=== PATIENT | female | born 1990 | race Caucasian/White ===

== ENCOUNTER → 2020-02-04 14:14 | Outpatient (BNVA) | payer MEDICAID, SELFPAY | PROVIDERS: Family Provider Nurse Practitioner Family; PCP Nurse Practitioner; Visit Provider Nurse Practitioner | DX: F50.00 Anorexia nervosa, unspecified (principal); F41.9 Anxiety disorder, unspecified; F32.9 Major depressive disorder, single episode, unspecified; E55.9 Vitamin D deficiency, unspecified | CPT/HCPCS: 80053; 81000; 82306; 82607; 84443; 85025 ==

== ENCOUNTER → 2020-02-25 15:39 | Outpatient (BNVA) | payer MEDICAID, SELFPAY | PROVIDERS: Family Provider Nurse Practitioner Family; PCP Nurse Practitioner; Visit Provider Nurse Practitioner | DX: Z12.4 Encounter for screening for malignant neoplasm of cervix (principal) | CPT/HCPCS: 88175 ==

== ENCOUNTER → 2020-05-06 09:33 | Outpatient (BNVA) | payer BC, MEDICAID, SELFPAY | PROVIDERS: Family Provider Nurse Practitioner Family; PCP Nurse Practitioner; Visit Provider Nurse Practitioner Family | DX: N91.2 Amenorrhea, unspecified (principal) | CPT/HCPCS: 81025 ==

== ENCOUNTER → 2020-05-15 13:11 | Outpatient (BNVA) | payer BC, MEDICAID, SELFPAY | PROVIDERS: Family Provider Nurse Practitioner Family; PCP Nurse Practitioner; Visit Provider Nurse Practitioner Women's Health | DX: O99.340 Other mental disorders complicating pregnancy, unspecified trimester (principal); F41.9 Anxiety disorder, unspecified; O09.899 Supervision of other high risk pregnancies, unspecified trimester; F50.00 Anorexia nervosa, unspecified; O34.219 Maternal care for unspecified type scar from previous cesarean delivery; O09.299 Supervision of pregnancy with other poor reproductive or obstetric history, unspecified trimester; O99.330 Smoking (tobacco) complicating pregnancy, unspecified trimester; O99.320 Drug use complicating pregnancy, unspecified trimester; O36.80X0 Pregnancy with inconclusive fetal viability, not applicable or unspecified | CPT/HCPCS: 80307; 81000 ==

== ENCOUNTER → 2020-06-02 15:24 | Outpatient (BNVA) | payer BC, MEDICAID, SELFPAY | PROVIDERS: Family Provider Nurse Practitioner Family; PCP Nurse Practitioner; Visit Provider Obstetrics & Gynecology | DX: O09.899 Supervision of other high risk pregnancies, unspecified trimester (principal) | CPT/HCPCS: 80307; 81000; 85027; 86592; 86762; 86803; 86850; 86900; 87086; 87340; 87806 ==

== ENCOUNTER → 2020-06-25 13:37 | Outpatient (BNVA) | payer BC, MEDICAID, SELFPAY | PROVIDERS: Family Provider Nurse Practitioner Family; PCP Nurse Practitioner; Visit Provider Obstetrics & Gynecology | DX: O99.330 Smoking (tobacco) complicating pregnancy, unspecified trimester (principal); O09.899 Supervision of other high risk pregnancies, unspecified trimester; O09.299 Supervision of pregnancy with other poor reproductive or obstetric history, unspecified trimester; O34.219 Maternal care for unspecified type scar from previous cesarean delivery; Z72.89 Other problems related to lifestyle; F41.9 Anxiety disorder, unspecified; F32.9 Major depressive disorder, single episode, unspecified; O99.320 Drug use complicating pregnancy, unspecified trimester; F50.00 Anorexia nervosa, unspecified | CPT/HCPCS: 81000; 87491; 87591; 88175 ==

== ENCOUNTER → 2020-07-23 13:49 | Outpatient (BNVA) | payer BC, MEDICAID, SELFPAY | PROVIDERS: Family Provider Nurse Practitioner Family; PCP Nurse Practitioner; Visit Provider Nurse Practitioner Women's Health | DX: O99.322 Drug use complicating pregnancy, second trimester (principal); O99.332 Smoking (tobacco) complicating pregnancy, second trimester; O09.299 Supervision of pregnancy with other poor reproductive or obstetric history, unspecified trimester; O34.219 Maternal care for unspecified type scar from previous cesarean delivery; F41.9 Anxiety disorder, unspecified; F32.9 Major depressive disorder, single episode, unspecified; F50.00 Anorexia nervosa, unspecified | CPT/HCPCS: 80307; 81000 ==

== ENCOUNTER 2020-11-13 22:27 | Outpatient (CLI) | payer BC, MEDICAID, SELFPAY ==
[2020-11-13 22:27] VITALS: BMI 21.1
[2020-11-13 22:47] VITALS: BP 123/67; PULSE 79; TEMP 36.5
[2020-11-13 23:09] VITALS: BP 133/64; PULSE 76
[2020-11-13 23:12] VITALS: TEMP 36.5
[2020-11-13 23:34] VITALS: BP 133/64; PULSE 76; RESP 16; TEMP 36.5
== END 2020-11-13 23:44 | disposition home or self-care (01) ==
LOC: OPOB 22:37 → OBGYN 22:38
PROVIDERS: PCP Nurse Practitioner; Visit Provider Family Medicine
DX: O26.899 Other specified pregnancy related conditions, unspecified trimester (principal); Z3A.00 Weeks of gestation of pregnancy not specified; Z91.81 History of falling
CPT/HCPCS: 59025; 99211

== ENCOUNTER 2020-12-31 05:24 | Inpatient (IN) | payer BC, MEDICAID, SELFPAY ==
[2020-12-31] VITALS (25 sets, daily range): BP systolic 99–143; BP diastolic 57–85; PULSE 54–586; RESP 15–18; TEMP 36.3–36.7; O2SAT 98–100; BMI 23.3
[2020-12-31] MEDS: lactated ringers 1,000 ML 999 ML IV ×2 (05:57→07:15)
[2020-12-31 06:09] LABS: Basophils # 0.1 10^3/uL (0.0-0.1); Basophils % 0.5 %; Eosinophils # 0.1 10^3/uL (0.0-0.8); Eosinophils % 1.2 %; Hematocrit 37.6 % (37.0-47.0); Hemoglobin 12.5 g/dL (11.5-15.3); Lymphocytes # 2.3 10^3/uL (0.8-4.8); Lymphocytes % 22.2 %; Mean Corpuscular HGB Conc 33.2 g/dL (30.0-36.0); Mean Corpuscular Volume 99.2 fl (81-99); Mean Platelet Volume 10.1 fL (7.4-10.4); Monocytes # 0.8 10^3/uL (0.2-0.9); Monocytes % 7.6 %; Neutrophils # 6.96 10^3/uL (1.8-7.7); Neutrophils % 67.3 %; Nucleated Red Blood Cells % 0 %; Platelet Count 203 10^3/cmm (130-400); Red Blood Count 3.79 10^6/uL (4.1-5.3); Red Cell Distribution Width 13.1 % (12.1-15.1); White Blood Count 10.3 10^3/uL (4.0-10.0)
[2020-12-31 06:38] LABS: Amphetamines Screen Urine Negative (Negative); Barbiturates Screen Urine Negative (Negative); Benzodiazepines Screen Urine Negative (Negative); Cocaine Screen Urine Negative (Negative); Opiate Screen Urine Negative (Negative); PCP Screen Urine Negative (Negative); THC Screen Urine Positive (Negative)
--- NOTE | 2020-12-31 06:57 | ANES.PREANE2 ---
Pre-Anesthetic Assessment Pre-Anesthetic Assessment: Height/Weight: Height 1.7 m Weight 67.585 kg Pulse Resp BP 82 16 128/73 12/31/20 06:02 12/31/20 05:41 12/31/20 06:02 Preop Diagnosis: previous Section Proposed Procedure: Operation Date: 12/31/20 07:00 Proposed Proicedures p Section Repeat(Not Applicable) - Priya Dixon MD Familial anesthetic complications: none Was Beta Karen taken within 24 hours: N/A Was Clonidine taken within 24 hours: N/A Last intake: Intake Last Liquid Date 12/30/20 Last Liquid Time 23:00 Last Solid Date 12/30/20 Last Solid Time 21:00 Last Intake: 23:00 Social: Social History: Tobacco Packs per day: 1ppd Comment: 15 yrs , + THC yesterday Exam: Pre-Anes Outpt Exam: alert, oriented x 3, clear to auscultation bilaterally and regular rate & rhythm Airway: Submandibular: WNL Cervical ROM: WNL MP: 1 Dentition: Other (poor multiple missing) Pulmonary: Pulmonary: Asthma, COPD and Cough CV/HEM: CV/HEM: None reported : : None reported Hepatic: Hepatic: None reported GI: GI: GERD Metabolic: Metabolic: None reported Musc/skel: Musc/skel: Scoliosis Neuropsych: Neuropsych: Anxiety and Depression Anesthetic Plan: ASA status: 2 Anesthesia: Anesthesia Evaluation and Regional (specify below) (SAB) Risk of > 500 ml blood loss (7ml/kg in children): Yes, adequate IV access and fluids planned PFSH Anesthesia PFSH: Medical History Anorexia nervosa Managed by Lauren Cunha Anxiety and depression Not managed by any provider. Has tried many medications no success.. History of methamphetamine use (~2013) No pertinent past medical history neghx: htn,dm,thyroid,dvt/pe,herpes ----denies partner with herpes PCP: Jazz Knapp Surgical History History of loop electrical excision procedure (LEEP) (~2013) Hx of section 2013 2016 Family History Family/Other Heart disease Maternal side in general Stroke Maternal side in general Thyroid disease Maternal side in general Grandfather Diabetes Maternal Mother Diabetes Hypercholesteremia Hypertension Denies family history of Colon cancer Ovarian cancer Breast cancer Uterine cancer Social History Smoking and tobacco status: current every day smoker cigarettes Packs smoked per day: 1 Years cigarettes smoked: 15 Alcohol intake: never Female Reproductive History: Date of last menstrual period: 02/04/20 : 3 Para: 2 Spontaneous abortions: No Data Anesthesia CBC & Chem 7: 12/31/20 05:54 Other Labs: Laboratory Results - last 48 hr 12/31/20 12/31/20 05:50 05:54 WBC 10.3 H RBC 3.79 L Hgb 12.5 Hct 37.6 MCV 99.2 H MCH 33.0 MCHC 33.2 RDW 13.1 Plt Count 203 MPV 10.1 Neut % (Auto) 67.3 Lymph % (Auto) 22.2 Barren % (Auto) 7.6 Eos % (Auto) 1.2 Baso % (Auto) 0.5 Neut # (Auto) 6.96 Lymph # (Auto) 2.3 Barren # (Auto) 0.8 Eos # (Auto) 0.1 Baso # (Auto) 0.1 Nucleated RBC % (auto) 0 Nucleated RBCs # 0.0 Urine Opiates Screen Negative Ur Barbiturates Screen Negative Ur Phencyclidine Scrn Negative Ur Amphetamines Screen Negative U Benzodiazepines Scrn Negative Urine Cocaine Screen Negative U Marijuana (THC) Screen Positive H Cardiac Studies: No Data to Display
[2020-12-31] MEDS: metoclopramide 5 mg/mL SDV 2 mL 10 MG IVP (07:05)
[2020-12-31] MEDS: citric acid-sodium citrate 30 mL UDC PO (07:05)
[2020-12-31] MEDS: famotidine 20 mg/2 mL INJ IVP (07:06)
[2020-12-31] MEDS: ketorolac 30 mg/mL INJ IVP ×3 (08:25→21:17)
--- NOTE | 2020-12-31 08:40 | PM.OPHPUD ---
Labor & Delivery H&P Update Date of Procedure: December 31, 2020 Date H&P Performed: 12/25/20 Admission Diagnosis: Preop diagnosis: previous Section Planned procedure: Operation Date: 12/31/20 07:00 Proposed Procedures p Section Repeat(Not Applicable) - Priya Dixon MD Related Problem List Diagnoses (1) Tobacco use in : (2) Previous delivery affecting : (3) Anxiety and depression: (4) Anorexia nervosa: (5) Drug use affecting :
--- NOTE | 2020-12-31 08:41 | PM.OP ---
Operative Report Date of procedure: December 31, 2020 Pre-op Diagnosis: previous Section Post-op diagnosis: same Procedure Done: Repeat low transverse section Specimens removed/disposition: Vertex male infant weight 2535 g, 5 pounds 9 ounces Apgars 9 and 9 Pathology: none sent Surgeon: Priya Dixon MD Anesthesia: Other (Spinal) Estimated blood loss (mL): 400 IV fluids (mL): 1,000 Urine output (mL): 300 Complications: None Condition: stable Disposition: PACU Procedure: After informed consent the patient was taken to the OR where spinal anesthesia was administered. She was prepped and draped in normal sterile fashion in dorsal supine position with a left lateral tilt. A Pfannenstiel skin incision was made through the prior scar and carried through to the underlying layer of fascia sharply. The fascial incision was then extended laterally using the Mayos. The fascia was grasped with Miguel Angel clamps and the underlying rectus muscles were dissected off taking care to avoid injury to the underlying tissue. The peritoneum was entered bluntly and the incision site was manually stretched. The bladder blade was then inserted. The vesicouterine peritoneum was identified and entered sharply using the Metzenbaums. Bladder flap was then created digitally and the bladder blade was then replaced. Uterine incision was made in a transverse fashion in the low lower uterine segment. Amniotic rupture membranes was performed with an Allis clamp and clear fluid was noted. The infant was delivered atraumatically with bulb suction of the mouth and nares at delivery. The cord was clamped and cut and the infant was handed to the waiting pediatric nurse. The placenta was delivered using fundal pressure. The uterus was then exteriorized from the abdomen and a dry sponge was used to clear the uterus of clots and debris. The uterine incision was then repaired using 0 chromic in a running locked fashion. A second layer of the same suture was used in an imbricating manner. Excellent hemostasis was obtained. The uterus was then returned to the abdomen. Irrigation was used to clear the gutters of clots and debris and the uterine incision was reinspected for hemostasis. The peritoneum was then reapproximated using 4-0 Vicryl in a running fashion. The subfascial tissue was inspected for any small bleeders. The fascia was then reapproximated using 0 Vicryl in a running fashion. The subcutaneous tissue was irrigated and inspected for any small bleeders. The subcutaneous tissue was then reapproximated using 4-0 Vicryl in a running fashion. The skin was then reapproximated using 4-0 Vicryl on a Musa needle. Steri-Strips and a pressure bandage were applied and patient went to recovery in good condition Sponge instrument and needle counts were correct.
[2020-12-31] MEDS: dextrose 5%-lactated ringers 1,000 ML 125 ML IV ×2 (09:40→16:56)
--- NOTE | 2020-12-31 10:11 | PC.NURSE ---
Patient moved up from PACU to PP via bed at this time
--- NOTE | 2020-12-31 10:23 | ANE.PACU2 ---
Inpatient post-anesthesia follow up: Airway intact: Yes Vital signs: Temperature 97.4 F Pulse Rate 56 Respiratory Rate 16 Blood Pressure 123/71 Pulse Oximetry 99 Oxygen Delivery Me thod Room Air Oxygen Flow Rate Fraction of Inspir ed Oxygen Hydration adequate: Yes Nausea and vomiting: No Pain level: 2 Mental status: Baseline
[2020-12-31] MEDS: diphenhydrAMINE 50 mg/mL SDV 1mL 25 MG IVP (21:17)
[2020-12-31 23:40] LABS: Hematocrit 34.3 % (37.0-47.0); Hemoglobin 11.3 g/dL (11.5-15.3); Mean Corpuscular HGB Conc 32.9 g/dL (30.0-36.0); Mean Corpuscular Hemoglobin 33.4 pg (28.0-34.0); Mean Corpuscular Volume 101.5 fl (81-99); Mean Platelet Volume 10.1 fL (7.4-10.4); Platelet Count 168 10^3/cmm (130-400); Red Blood Count 3.38 10^6/uL (4.1-5.3); Red Cell Distribution Width 13.1 % (12.1-15.1); White Blood Count 11.3 10^3/uL (4.0-10.0)
[2021-01-01] MEDS: HYDROcodone-acetaminophen 5-325 mg Tablet PO ×3 (02:59→16:27)
[2021-01-01 04:15] VITALS: BP 118/70; PULSE 61; RESP 14
[2021-01-01] MEDS: ferrous sulfate EC 325 mg Tablet PO ×2 (08:29→18:10)
[2021-01-01] MEDS: docusate sodium 100 mg Capsule PO ×2 (08:29→18:10)
[2021-01-01] MEDS: prenatal vitamin Capsule 1 CAP PO (08:29)
[2021-01-01] MEDS: ibuprofen 800 mg tablet PO ×3 (08:30→20:15)
[2021-01-01 10:15] VITALS: BP 129/80; PULSE 67; RESP 18; TEMP 36.8; O2SAT 99
[2021-01-01 16:29] VITALS: BP 145/82; PULSE 72; RESP 18; TEMP 36.6; O2SAT 95
--- NOTE | 2021-01-01 17:18 | P.PN_ITS ---
Subjective Subjective: Interval history: Ambulating, tolerating a regular diet, average vaginal bleeding Vitals/I&O/Wt Last Vital Signs Temp 97.8 F 01/01/21 16:29 Pulse 72 01/01/21 16:29 Resp 18 01/01/21 16:29 BP 145/82 01/01/21 16:29 Pulse Ox 95 01/01/21 16:29 01/01/21 01/01/21 01/01/21 06:59 14:59 22:59 Output Total 1500 / 3975 250 / 250 Balance -1500 / -2066.667 -250 / -250 Weight last 48 hrs Weight 67.585 kg Physical Exam Narrative: EXAM NARRATIVE: And oriented, sitting up in bed eating. Lungs clear to auscultation bilaterally heart regular rate and rhythm no murmurs abdomen soft with appropriate postoperative tenderness. Incision clean dry and intact, Steri-Strips are dry, no calf tenderness no edema Urinary Catheter Management^: Mccracken: Cath Placed During This Visit: yes, but has since been removed by the nurse Reason for Continuing Indwelling Catheter: Decision to DC Catheter Urinary Catheter Date of Insertion: 12/31/20 Urinary Catheter Time of Insertion: 07:35 Date Urinary Catheter Removed: 01/01/21 Time Urinary Catheter Discontinued: 05:46 Data : 12/31/20 23:25 A&P Assessment and plan (1) Tobacco use in : Status: Acute Qualifiers: Trimester: second trimester Qualified Code(s): O99.332 - Smoking (tobacco) complicating , second trimester (2) Anxiety and depression: Status: Chronic (3) Anorexia nervosa: Status: Chronic (4) Status post repeat low transverse section: Doing well. Continue routine postoperative care. Likely discharge home tomorrow. Status: Acute (5) Drug use affecting : Status: Acute Qualifiers: Trimester: second trimester Qualified Code(s): O99.322 - Drug use complicating , second trimester Attestations Medical Necessity Statement*: Routine postoperative care Coding Level of Care Code Acute Top Installer for Chg Fwd Diagnoses Tobacco use in O99.332 Trimester: second trimester Anxiety and depression F41.9; F32.9 Anorexia nervosa F50.00 Status post repeat low transverse section Z98.891 Drug use affecting O99.322 Trimester: second trimester
--- NOTE | 2021-01-01 20:10 | PC.NURSE ---
Educated pt on the importance of using her IS in the prevention of infection. Pt stated it hurts to use because it makes me cough.
[2021-01-01 21:30] VITALS: BP 131/70; PULSE 65; RESP 17; O2SAT 98
[2021-01-02] MEDS: HYDROcodone-acetaminophen 5-325 mg Tablet PO ×2 (06:13→12:28)
--- NOTE | 2021-01-02 08:25 | P.DS_ITS ---
Discharge Providers DIRECTOR MEDIA Date of Admission: 12/31/20 05:24 Date of Discharge: 01/02/21 Attending Provider at Admission: Priya Dixon MD Attending Provider at Discharge: Priya Dixon MD Primary Care Provider: LAURA Welsh Diagnoses at Discharge Discharge Diagnosis (1) Tobacco use in : Status: Acute Qualifiers: Trimester: second trimester Qualified Code(s): O99.332 - Smoking (tobacco) complicating , second trimester (2) Anxiety and depression: Status: Chronic (3) Anorexia nervosa: Status: Chronic (4) Status post repeat low transverse section: Status: Acute (5) Drug use affecting : Status: Acute Permanent problem details: THC Qualifiers: Trimester: second trimester Qualified Code(s): O99.322 - Drug use complicating , second trimester Reason for Visit Reason for Visit: C SECTION Hospital Course Hospital Course This is a 30-year-old G3 now P3 who was admitted for repeat section at term. She had an uncomplicated repeat low transverse section. She did well postoperatively was ambulating, tolerating a regular diet, and had good pain control. She did have a productive smokers-like cough from admission and at times had rhonchi that seemed to worsen. She denied any SOB or difference from baseline. I'm going to cover her with abx as a precaution on discharge. Information Peripartum Data: Infant Delivery Method: Physical Exam Narrative: EXAM NARRATIVE: She is A&O sitting in bed. RRR, no murmur. lungs with some coarse rhonchi that change with cough. abdomen with appropriate post- op tenderness, incision c/d/i. no calf tenderness, no edema. Urinary Catheter Management^: Mccracken: Cath Placed During This Visit: yes, but has since been removed by the nurse Reason for Continuing Indwelling Catheter: Decision to DC Catheter Urinary Catheter Date of Insertion: 12/31/20 Urinary Catheter Time of Insertion: 07:35 Date Urinary Catheter Removed: 01/01/21 Time Urinary Catheter Discontinued: 05:46 Discharge Data Vitals: Last Vital Signs Temp 97.8 F 01/01/21 16:29 Pulse 65 01/01/21 21:30 Resp 17 01/01/21 21:30 BP 131/70 01/01/21 21:30 Pulse Ox 98 01/01/21 21:30 Discharge Plan Discharge Patient Disposition: Home Condition: Stable Prescriptions: New hydrocodone-acetaminophen 5-325 mg Tablet 1 - 2 tab PO Q4H PRN (Reason: Moderate To Severe Pain) Qty: 20 RF: 0 docusate sodium 100 mg Capsule 100 mg PO BID Qty: 60 RF: 0 azithromycin 250 mg tablet See Rx Instructions .ROUTE .COMPLEX Qty: 6 RF: 0 Continued prenat.vits,harsh,qof-iagh-mwrvl Tablet 1 tab PO DAILY RF: 0 ProAir HFA 90 mcg/actuation HFA aerosol inhaler 1 inh INHALATION DIRECTED RF: 0 Vitamin D3 10 mcg (400 unit) Capsule 10 mcg PO DAILY RF: 0 Tylenol 325 mg Capsule 325 mg PO QID PRN (Reason: Pain) RF: 0 Discharge Orders: Discharge Order (Routine); Ordered 01/02/21 Ordered By: Priya Dixon Referrals: Priya Dixon MD [Physician] - 2 weeks Discharge Diet: Usual diet Discharge Activity: Limit activity as instructed Patient Instructions: Depression (DC), Perineal Care (DC), Bleeding (DC), Preeclampsia and Eclampsia After Delivery (GEN), Vaginal Delivery (DC), OB Care at Home, Opioid Safety, OB Home Care, Abnormal Bleeding Activity Restrictions/Additional Instructions: No lifting anything greater than 10 lbs for 2 weeks. Continue incentive spirometry TID for 7 days. Discharge Attestations DIRECTOR MEDIA Time Spent in Discharge Care*: less than 30 min Coding Level of Care Code Acute Ham Passer for Chg Fwd Diagnoses Tobacco use in O99.332 Trimester: second trimester Anxiety and depression F41.9; F32.9 Anorexia nervosa F50.00 Status post repeat low transverse section Z98.891 Drug use affecting O99.322 Trimester: second trimester
[2021-01-02] MEDS: ferrous sulfate EC 325 mg Tablet PO (09:30)
[2021-01-02] MEDS: prenatal vitamin Capsule 1 CAP PO (09:30)
[2021-01-02] MEDS: docusate sodium 100 mg Capsule PO (09:30)
[2021-01-02] MEDS: ibuprofen 800 mg tablet PO (09:31)
[2021-01-02 12:40] VITALS: BP 138/72; PULSE 72; RESP 18; TEMP 36.7; O2SAT 100
== END 2021-01-02 12:50 | disposition home or self-care (01) | DRG 787 ==
PROVIDERS: Admitting Provider Family Medicine; PCP Nurse Practitioner; Visit Provider Family Medicine
PROC: 10D00Z1 Extraction of Products of Conception, Low, Open Approach (ICD-10-PCS; CPT 59514; principal; 2020-12-31 07:00)
DX: O34.211 Maternal care for low transverse scar from previous cesarean delivery (principal); O99.324 Drug use complicating childbirth; F50.00 Anorexia nervosa, unspecified; Z37.0 Single live birth; O99.344 Other mental disorders complicating childbirth; F41.8 Other specified anxiety disorders; O99.334 Smoking (tobacco) complicating childbirth; F17.210 Nicotine dependence, cigarettes, uncomplicated; F12.90 Cannabis use, unspecified, uncomplicated; O75.89 Other specified complications of labor and delivery; J41.0 Simple chronic bronchitis; Z3A.39 39 weeks gestation of pregnancy
CPT/HCPCS: 36415; 51702; 59025; 80306; 85025; 85027; 98960; J0690; J1200; J1885; J2274; J2405; J2765; J3490; J7030

== ENCOUNTER 2021-04-16 15:29 | Emergency (ER) | payer BC, MEDICAID, SELFPAY ==
[2021-04-16 15:36] VITALS: BP 156/94; PULSE 130; RESP 18; TEMP 36.8; O2SAT 99; BMI 18.8
--- NOTE | 2021-04-16 15:48 | ED_ITS ---
HPI - Abdominal Pain General: Chief Complaint: General Medical Stated Complaint: Passing blood, cramping, and fevor Time Seen by Provider: 04/16/21 15:47 History of Present Illness: Ms Barrios is a 31-year-old lady with complex past medical history including anorexia nervosa, anxiety, history of with repeat low transverse on 12/31/2020 who presents emergency department due to various concerns. She was doing okay post however about 2 and half weeks ago had 1 day of heavy vaginal bleeding where she was soaking through multiple pads. This spontaneously resolved however subsequently she has had abdominal cramping which is occurred nearly daily. She has no associated nausea or changes from baseline bowel movements. The past few days she has noticed some spotting again and the spotting intensity appears to correlate with cramping intensity. Overall the course of symptoms has been worsening. At worst intensity is moderate to severe. She cannot think of any specific exacerbating or relieving factors. She reports that 2 and half weeks ago was the first time that she had vaginal bleeding since her resolution of lochia post . She is sexually active. She is breast-feeding. She reports many chronic symptoms including pain on the right side of her site since essentially her surgery as well as various areas of numbness and tingling. Regarding her eating disorder she reports that the place where she gets her shakes that she supplements with have only intermittently had stock. No history of bleeding disorders or anemia Pertinent past history: other Onset (ago): week(s) Pain Consistency: intermittent Location: RLQ, LLQ and Suprapubic Severity: mild (currently) Quality: cramping Radiation: none Exacerbating factors: nothing Relieving factors: nothing Context: other Related Data: Date of Last Menstrual Period: 02/04/20 Review of Systems General: Reports: 10 or more systems reviewed and unremarkable except in HPI and below PFSH ED PFSH: Medical History Anorexia nervosa Anxiety and depression History of methamphetamine use (~2013) No pertinent past medical history neghx: htn,dm,thyroid,dvt/pe,herpes ----denies partner with herpes PCP: Jazz Knapp Surgical History History of loop electrical excision procedure (LEEP) (~2013) Hx of section 2013 2016 Family History Family/Other Heart disease Maternal side in general Stroke Maternal side in general Thyroid disease Maternal side in general Grandfather Diabetes Maternal Mother Diabetes Hypercholesteremia Hypertension Denies family history of Colon cancer Ovarian cancer Breast cancer Uterine cancer Social History Smoking and tobacco status: current every day smoker cigarettes Packs smoked per day: 1 Years cigarettes smoked: 15 Alcohol intake: never Female Reproductive History: Date of last menstrual period: 02/04/20 Para: 2 Spontaneous abortions: No Physical Exam Const: COMMON NORMALS: alert GENERAL APPEARANCE: cooperative and well developed HENMT: COMMON NORMALS: normocephalic and atraumatic HEAD & SCALP: normocephalic and atraumatic THROAT: posterior oropharynx normal Eye: COMMON NORMALS: conjunctivae normal CONJUNCTIVA: Yes conjunctivae normal SCLERA: sclerae normal Neck/C-Spine: COMMON NORMALS: supple GENERAL: Yes trachea midline Resp: COMMON NORMALS: normal respiratory effort and clear to auscultation bilaterally EFFORT & INSPECTION: Yes able to speak in complete sentences AUSCULTATION: clear to auscultation bilaterally Cardio: COMMON NORMALS: regular rate and regular rhythm RATE: regular rate RHYTHM: regular rhythm GI: COMMON NORMALS: Soft to palpation PALPATION: Yes Soft to palpation, No Tenderness to palpation present (GI), No Guarding due to palpation present (GI) and No Rigid due to palpation PERCUSSION: normal to percussion : COMMON NORMALS: Yes normal external appearance, Yes normal appearance of the vagina, No normal appearance of the cervix (history of LEEP with some asymmetry, no bleeding or other abnormality appre), Yes normal bimanual exam, Yes No adnexal tenderness and Yes no masses BIMANUAL EXAM - VAGINA & UTERUS: Yes normal bimanual exam OTHER: Performed with mathematics lecturer present, discussed with patient that this is not a replacement for Pap smear, patient endorses history of LEEP Extremity: GENERAL: Yes normal exam except as noted and No edema Neuro: COMMON NORMALS: moves all extremities SENSORIUM/ORIENTATION: Yes alert and No Orientation impaired Psych: COMMON NORMALS: mental status grossly normal and Normal thought process present MOOD & AFFECT: Yes anxious (Mildly) THOUGHT PROCESS: Normal thought process present Course ED course: - Patient was seen and evaluated by me at bedside - Patient placed on cardiac monitors, IV access obtained - Initial evaluation notable for exam as above -Fluids ordered - Labs notable for mild leukopenia, likely hemoconcentration. No acute electrolyte derangement. No evidence of urinary tract infection. Covid negative. - Imaging notable for likely enteritis with small bowel fluid. Constipation also noted. No other acute finding to explain patient's pain. Based on pelvic exam without focal tenderness on bimanual exam I do not feel that ultrasound is warranted in the emergency department. - Upon serial reexamination after treatment the patient was improved - Based on patient history, evaluation, labs, and imaging as interpreted the most likely cause of the patient's condition is enteritis - The results of ED evaluation were discussed with the patient including prescriptions and/or symptomatic cares (if applicable) including appropriate and responsible use, followup plan, and return precautions. The patient verbalized understanding and felt safe for discharge. - Patient discharged in satisfactory condition. Note: Click bubbles or prepopulated benton in note writing are used for assistance with data collection and billing and are inherently more limited than narrative and other text portions of this note. Please use narrative for additional clinical history and defer to narrative/free test for any case of contradictory information. If information appears in only free text or click bubble it should be considered present or absent as reported. Please contact note commercial underwriter for clarifications of clinical information or contradictory information. MDM is a brief summary, contradictory or erroneous seeming information should be clarified and full note should be reviewed. Vital Signs: Vital signs: Vital Signs Temperature 98.3 F 04/16/21 15:36 Pulse Rate 108 H 04/16/21 19:14 Respiratory Rate 20 H 04/16/21 19:14 Blood Pressure 120/70 04/16/21 19:14 Pulse Oximetry 99 04/16/21 19:14 MDM - Abdominal Pain Medical Decision Making 31-year-old lady with history of rLTCS in December presenting with vaginal bleeding for 2 weeks. Mild associated abdominal discomfort with feeds. She does have abdominal tenderness on exam. Likely dehydration on labs and enteritis/constipation found on CT imaging. Bimanual exam unremarkable without bleeding from cervical os. Patient satisfactory for outpatient management and follow-up with [facility]ARE SPECIALIST. Medical Records I reviewed the patient's medical records. Lab Data I reviewed the patient's lab results. : 04/16/21 16:24 04/16/21 16:24 Labs/Radiology: Radiology Impressions Abdomen/Pelvis CT 04/16/21 17:56 IMPRESSION: 1. Prominent fluid in the small bowel without dilation suggestive of an enteritis. 2. Emphysematous changes. 3. Constipation. Laboratory Results WBC 3.4 10^3/uL (4.0-10.0) L 04/16/21 16:24 RBC 4.94 10^6/uL (4.1-5.3) 04/16/21 16:24 Hgb 16.2 g/dL (11.5-15.3) H 04/16/21 16:24 Hct 49.0 % (37.0-47.0) H 04/16/21 16:24 MCV 99.2 fl (81-99) H 04/16/21 16:24 MCH 32.8 pg (28.0-34.0) 04/16/21 16:24 MCHC 33.1 g/dL (30.0-36.0) 04/16/21 16:24 RDW 13.2 % (12.1-15.1) 04/16/21 16:24 Plt Count 222 10^3/cmm (130-400) 04/16/21 16:24 MPV 9.8 fL (7.4-10.4) 04/16/21 16:24 Neut % (Auto) 40.3 % 04/16/21 16:24 Lymph % (Auto) 34.1 % 04/16/21 16:24 [place] % (Auto) 22.6 % 04/16/21 16:24 Eos % (Auto) 0.9 % 04/16/21 16:24 Baso % (Auto) 1.8 % 04/16/21 16:24 Neut # (Auto) 1.37 10^3/uL (1.8-7.7) L 04/16/21 16:24 Lymph # (Auto) 1.2 10^3/uL (0.8-4.8) 04/16/21 16:24 [place] # (Auto) 0.8 10^3/uL (0.2-0.9) 04/16/21 16:24 Eos # (Auto) 0.0 10^3/uL (0.0-0.8) 04/16/21 16:24 Baso # (Auto) 0.1 10^3/uL (0.0-0.1) 04/16/21 16:24 Nucleated RBC % (auto) 0 % 04/16/21 16:24 Nucleated RBCs # 0.0 /100WBC 04/16/21 16:24 Sodium 140 mmol/L (136-145) 04/16/21 16:24 Potassium 3.7 mmol/L (3.5-5.1) 04/16/21 16:24 Chloride 102 mmol/L (98-107) 04/16/21 16:24 Carbon Dioxide 23 mmol/L (22-29) 04/16/21 16:24 Anion Gap 18.7 (5-19) 04/16/21 16:24 BUN 11 mg/dL (6-20) 04/16/21 16:24 Creatinine 0.7 mg/dL (0.5-0.9) 04/16/21 16:24 GFR Calculation 98.3 mL/min (90-130) 04/16/21 16:24 Glucose 66 mg/dL (65-115) 04/16/21 16:24 Calculated Osmolality 288 mOsm/kg (285-295) 04/16/21 16:24 Calcium 9.4 mg/dL (8.5-10.5) 04/16/21 16:24 Total Bilirubin 0.2 mg/dL (0.15-1.2) 04/16/21 16:24 AST 25 U/L (0-32) 04/16/21 16:24 ALT 18 U/L (0-33) 04/16/21 16:24 Alkaline Phosphatase 78 IU/L (35-105) 04/16/21 16:24 Total Protein 7.9 g/dL (6.6-8.7) 04/16/21 16:24 Albumin 5.2 g/dL (3.5-5.2) 04/16/21 16:24 Globulin 2.7 g/dL (1.3-4.6) 04/16/21 16:24 Lipase 22 U/L (13-60) 04/16/21 16:24 TSH 1.66 uIU/mL (0.27-4.20) 04/16/21 16:24 HCG, Qual Negative (Negative) 04/16/21 16:15 Urine Color Yellow (Yellow) 04/16/21 16:15 Urine Appearance Clear (CLEAR) 04/16/21 16:15 Urine pH 6.5 (5-7) 04/16/21 16:15 Ur Specific [place] 1.015 (1.005-1.030) 04/16/21 16:15 Urine Protein Neg (Negative) 04/16/21 16:15 Urine Glucose (UA) Norm (Normal) 04/16/21 16:15 Urine Ketones 1+ (Negative) H 04/16/21 16:15 Urine Blood Neg (Negative) 04/16/21 16:15 Urine Nitrate Negative (Negative) 04/16/21 16:15 Urine Bilirubin Neg (Negative) 04/16/21 16:15 Urine Urobilinogen Norm mg/dL (Negative) 04/16/21 16:15 Ur Leukocyte Esterase Negative (Negative) 04/16/21 16:15 SARS-CoV-2 Ag (Rapid) Negative (Negative) 04/16/21 17:02 EKG Data EKG 1: I personally reviewed and interpreted this EKG as follows: EKG interpretation date: 04/16/21 EKG interpretation time: 16:38 Interpretation: Twelve-lead EKG shows a regular rhythm at a rate of 89. MT interval 139, QRS duration 86, QTc 400. Normal axis. Interpretation: Sinus rhythm. Discharge Plan Discharge Patient Disposition: Home Clinical Impression: Abdominal pain, Vaginal bleeding, Dehydration, Leukopenia, Enteritis, Constipat ion Condition: Stable Prescriptions: New Augmentin 875-125 mg tablet 1 tab PO BID Qty: 14 0RF No Action prenat.vits,harsh,fxe-pngz-lnwql Tablet 1 tab PO DAILY 0RF ProAir HFA 90 mcg/actuation HFA aerosol inhaler 1 inh INHALATION DIRECTED 0RF Vitamin D3 10 mcg (400 unit) Capsule 10 mcg PO DAILY 0RF Tylenol 325 mg Capsule 325 mg PO QID PRN (Reason: Pain) 0RF hydrocodone-acetaminophen 5-325 mg Tablet 1 - 2 tab PO Q4H PRN (Reason: Moderate To Severe Pain) Qty: 20 0RF docusate sodium 100 mg Capsule 100 mg PO BID Qty: 60 0RF azithromycin 250 mg tablet See Rx Instructions .ROUTE .COMPLEX Qty: 6 0RF Rx Instructions: take 500 mg today (day 1), then 250 mg for 4 days (days 2-5) Discharge Orders: Discharge ED (Routine); Ordered 04/16/21 Ordered By: Dean Mo Referrals: Lauren Cunha, [employer] INSTALLER APPRENTICE-C [Primary Care Provider] - Discharge Diet: Advance as tolerated and Clear Liquid Discharge Activity: Resume usual activity Patient Instructions: Abnormal (Dysfunctional) Uterine Bleeding (ED), Constipa tion (ED), Dehydration (ED), Abdominal Pain (ED), Enteritis (ED) Activity Restrictions/Additional Instructions: Thank you for visiting the emergency department. You were seen and evaluated for abdominal pain and vaginal bleeding. The exact cause of your symptoms is unclear, however, CT scan did reveal enteritis. Given the duration of symptoms this will be treated with antibiotics. Please follow-up with your SK[facility] CARE SPECIALIST physician or primary care provider regarding vaginal bleeding. Please follow-up with your primary care provider. Return to the emergency department for worsening symptoms, going through more than 2 pads per hour, lightheadedness, syncope, chest pain, shortness of breath, or anything else that you are concerned about and feel needs emergency department evaluation. Coding Level of Care Code ED Vehicle And Equipment Cleaner for Chg Fwd Exam Comprehensive
[2021-04-16 15:57] VITALS: BP 130/92; PULSE 110; RESP 18; O2SAT 99
--- NOTE | 2021-04-16 16:01 | ECG_ITS ---
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 Measurements Intervals [place] Rate: 89 P: 80 NV: 139 QRS: 83 QRSD: 86 T: 53 QT: 353 QTc: 432 Interpretive Statements SINUS RHYTHM POSSIBLE RIGHT ATRIAL ENLARGEMENT [0.25mV P-WAVE] POSSIBLE RIGHT VENTRICULAR CONDUCTION DELAY [RSR (QR) IN V1/V2] Compared to ECG 03/29/2018 01:10:04 ST (T wave) deviation no longer present Electronically Signed On 04-17-2021 10:58:18 BOOSTER ASSEMBLER by Liz Maldonado M.D. [email or web address]
[2021-04-16 16:31] LABS: Add Urine Microscopic? NO; Charge for UA Resulting for Rev
[2021-04-16 16:33] LABS: Basophils # 0.1 10^3/uL (0.0-0.1); Basophils % 1.8 %; Eosinophils % 0.9 %; Hemoglobin 16.2 g/dL (11.5-15.3); Lymphocytes # 1.2 10^3/uL (0.8-4.8); Lymphocytes % 34.1 %; Mean Corpuscular HGB Conc 33.1 g/dL (30.0-36.0); Mean Corpuscular Hemoglobin 32.8 pg (28.0-34.0); Mean Corpuscular Volume 99.2 fl (81-99); Mean Platelet Volume 9.8 fL (7.4-10.4); Monocytes # 0.8 10^3/uL (0.2-0.9); Monocytes % 22.6 %; Neutrophils # 1.37 10^3/uL (1.8-7.7); Neutrophils % 40.3 %; Nucleated Red Blood Cells % 0 %; Platelet Count 222 10^3/cmm (130-400); Red Blood Count 4.94 10^6/uL (4.1-5.3); Red Cell Distribution Width 13.2 % (12.1-15.1); White Blood Count 3.4 10^3/uL (4.0-10.0)
[2021-04-16] MEDS: sodium chloride 0.9% 1,000 ML 999 ML IV (16:40)
[2021-04-16 16:42] LABS: Bilirubin Urine Neg (Negative); Blood Urine Neg (Negative); Glucose Urine UA Norm (Normal); HCG Qualitative Urine. Negative (Negative); Ketones Urine 1+ (Negative); Leukocyte Esterase Urine Negative (Negative); Nitrate Urine Negative (Negative); Protein Urine Neg (Negative); Specific Gravity, Urine 1.015 (1.005-1.030); Urine Appearance Clear (CLEAR); Urine Color Yellow (Yellow); Urobilinogen Urine Norm (Negative); pH Urine 6.5 (5-7)
[2021-04-16 16:50] LABS: Potassium 3.7 mmol/L (3.5-5.1)
[2021-04-16 17:13] LABS: Alanine Aminotransferase 18 U/L (0-33); Albumin Level 5.2 g/dL (3.5-5.2); Alkaline Phosphatase 78 IU/L (35-105); Anion Gap 18.7 (5-19); Blood Urea Nitrogen 11 mg/dL (6-20); Calcium 9.4 mg/dL (8.5-10.5); Carbon Dioxide 23 mmol/L (22-29); Globulin 2.7 g/dL (1.3-4.6); Glomerular Filtration Rate 98.3 mL/min (90-130); Glucose 66 mg/dL (65-115); Lipase 22 U/L (13-60); Osmolality Calculated 288 mOsm/kg (285-295); Thyroid Stimulating Hormone 1.66 uIU/mL (0.27-4.20); Total Bilirubin 0.2 mg/dL (0.15-1.2); Total Protein 7.9 g/dL (6.6-8.7)
[2021-04-16 17:16] LABS: Chloride 102 mmol/L (98-107); Sodium 140 mmol/L (136-145)
[2021-04-16 17:17] LABS: Aspartate Amino Transferase 25 U/L (0-32)
[2021-04-16 17:50] LABS: SARS Covid-2 Antigen Negative (Negative)
--- NOTE | 2021-04-16 17:56 | CTR_ITS ---
PROCEDURE INFORMATION: Exam: CT Abdomen And Pelvis With Contrast Exam date and time: 04/16/2021 5:56 PM Age: 31 years old Clinical indication: Other: Cramping, bleeding; Abdominal pain; Localized; Lower; Prior surgery; Surgery date: 1-6 months; Surgery type: x 3 months; Patient HX: HX of cervical cancer; Additional info: Abdominal pain, suprapubic, llq and rlq TECHNIQUE: Imaging protocol: Computed tomography of the abdomen and pelvis with contrast. Radiation optimization: All CT scans at this facility use at least one of these dose optimization techniques: automated exposure control; mA and/or kV adjustment per patient size (includes targeted exams where dose is matched to clinical indication); or iterative reconstruction. Contrast material: OMNI 300; Contrast volume: 75 ml; Contrast route: INTRAVENOUS (IV); COMPARISON: CT Chest/Abdomen/Pelvis w IV* 01/13/2019 4:03 PM RADIATION DOSE METRICS: Total DLP (mGy-cm): 724.39 FINDINGS: Lungs: Emphysematous changes. Liver: Normal. No mass. Gallbladder and bile ducts: Normal. No calcified stones. No ductal dilation. Pancreas: Normal. No ductal dilation. Spleen: Normal. No splenomegaly. Adrenal glands: Normal. No mass. Kidneys and ureters: Normal. No hydronephrosis. Stomach and bowel: Prominent fluid in the small bowel without dilation suggestive of an enteritis. Constipation. Appendix: No evidence of appendicitis. Intraperitoneal space: Unremarkable. No free air. No significant fluid collection. Vasculature: Unremarkable. No abdominal aortic aneurysm. Lymph nodes: Unremarkable. No enlarged lymph nodes. Urinary bladder: Unremarkable as visualized. Reproductive: Unremarkable as visualized. Bones/joints: Unremarkable. No acute fracture. Soft tissues: Unremarkable. CT/CT abdomen pelvis w con* [id number] IMPRESSION: 1. Prominent fluid in the small bowel without dilation suggestive of an enteritis. 2. Emphysematous changes. 3. Constipation.
[2021-04-16] MEDS: iohexol 300 mg/mL 100 mL Btl IV (18:14)
[2021-04-16 18:41] VITALS: BP 126/89; RESP 18; O2SAT 100
[2021-04-16 19:14] VITALS: BP 120/70; PULSE 108; RESP 20; O2SAT 99
== END 2021-04-16 19:17 | disposition home or self-care (01) ==
PROVIDERS: Emergency Provider Emergency Medicine; PCP Nurse Practitioner
DX: R10.9 Unspecified abdominal pain (principal); N93.9 Abnormal uterine and vaginal bleeding, unspecified; K52.9 Noninfective gastroenteritis and colitis, unspecified; K59.00 Constipation, unspecified; E86.0 Dehydration; D72.819 Decreased white blood cell count, unspecified; F17.210 Nicotine dependence, cigarettes, uncomplicated; Z20.822 Contact with and (suspected) exposure to COVID-19
CPT/HCPCS: 74177; 80053; 81003; 81025; 83690; 84443; 85025; 87210; 87426; 93005; 96360; 99284; J7030; Q9967

== ENCOUNTER 2022-05-27 22:24 | Emergency (ER) | payer BC, MEDICAID, SELFPAY ==
[2022-05-27 22:37] VITALS: BP 140/82; PULSE 93; RESP 20; TEMP 36.8; O2SAT 95; BMI 17.5
[2022-05-27 23:05] LABS: Basophils # 0.1 10^3/uL (0.0-0.1); Basophils % 0.5 %; Eosinophils % 0.2 %; Hematocrit 42.8 % (37.0-47.0); Hemoglobin 14.1 g/dL (11.5-15.3); Lymphocytes # 1.7 10^3/uL (0.8-4.8); Lymphocytes % 13.5 %; Mean Corpuscular HGB Conc 32.9 g/dL (30.0-36.0); Mean Corpuscular Hemoglobin 32.5 pg (28.0-34.0); Mean Corpuscular Volume 98.6 fl (81-99); Mean Platelet Volume 9.2 fL (7.4-10.4); Monocytes # 0.8 10^3/uL (0.2-0.9); Monocytes % 6.7 %; Neutrophils # 9.77 10^3/uL (1.8-7.7); Neutrophils % 78.8 %; Nucleated Red Blood Cells % 0 %; Platelet Count 267 10^3/cmm (130-400); Red Blood Count 4.34 10^6/uL (4.1-5.3); White Blood Count 12.4 10^3/uL (4.0-10.0)
[2022-05-27 23:19] LABS: HCG, Serum Qual Negative (Negative)
[2022-05-27 23:23] LABS: Alanine Aminotransferase 11 U/L (0-33); Albumin Level 4.4 g/dL (3.5-5.2); Alkaline Phosphatase 45 U/L (35-105); Anion Gap 14.7 (5-19); Aspartate Amino Transferase 13 U/L (0-32); Blood Urea Nitrogen 13 mg/dL (6-20); Calcium 9.4 mg/dL (8.5-10.5); Carbon Dioxide 25 mmol/L (22-29); Chloride 102 mmol/L (98-107); Globulin 3.2 g/dL (1.3-4.6); Glomerular Filtration Rate 97.6 mL/min (90-130); Glucose 111 mg/dL (65-115); Lipase 15 U/L (13-60); Osmolality Calculated 287 mOsm/kg (285-295); Potassium 3.7 mmol/L (3.5-5.1); Sodium 138 mmol/L (136-145); Total Bilirubin 0.3 mg/dL (0.15-1.2); Total Protein 7.6 g/dL (6.6-8.7)
[2022-05-27 23:40] VITALS: BP 138/92; PULSE 97; O2SAT 100
--- NOTE | 2022-05-27 23:44 | CTR_ITS ---
PROCEDURE INFORMATION: Exam: CT Abdomen And Pelvis Without Contrast Exam date and time: 05/28/2022 12:13 AM Age: 32 years old Clinical indication: Nausea and vomiting; Abdominal pain; Right; Prior surgery; Surgery type: Leep. Csection; Patient HX: RT flank pain with n/v. ; Additional info: Right flank pain TECHNIQUE: Imaging protocol: Computed tomography of the abdomen and pelvis without contrast. Radiation optimization: All CT scans at this facility use at least one of these dose optimization techniques: automated exposure control; mA and/or kV adjustment per patient size (includes targeted exams where dose is matched to clinical indication); or iterative reconstruction. REPORTING DATA: Count of CT and Cardiac NM exams in prior 12 months: This patient has received 0 known CTs and 0 known cardiac nuclear medicine studies in the 12 months prior to the current study. COMPARISON: CT abdomen pelvis w con* [id number] 04/16/2021 6:13 PM RADIATION DOSE METRICS: Total DLP (mGy-cm): 292.79 FINDINGS: Liver: Normal. No mass. Gallbladder and bile ducts: Normal. No calcified stones. No ductal dilation. Pancreas: Normal. No ductal dilation. Spleen: Normal. No splenomegaly. Adrenal glands: Normal. No mass. Kidneys and ureters: Normal. No hydronephrosis. Stomach and bowel: Unremarkable. No obstruction. No mucosal thickening. Appendix: The appendix is visualized and is normal in configuration. Intraperitoneal space: Unremarkable. No free air. No significant fluid collection. Vasculature: Unremarkable. No abdominal aortic aneurysm. Lymph nodes: Unremarkable. No enlarged lymph nodes. Urinary bladder: Unremarkable as visualized. Reproductive: Unremarkable as visualized. Bones/joints: Unremarkable. No acute fracture. Soft tissues: Unremarkable. CT/CT kidney stone [id number] IMPRESSION: 1. There are no acute abdominal findings. 2. Normal appendix 3. No evidence for ureteral obstruction
--- NOTE | 2022-05-27 23:44 | W.ED.NAVMDI ---
HPI - Nausea/Vomiting/Diarrhea General: Chief complaint: Nausea/Vomiting/Diarrhea Stated complaint: R flank pain; n/d ; arm recheck Time Seen by Provider: 05/27/22 22:57 Source: patient Mode of arrival: ambulatory Limitations: no limitations History of Present Illness: 32-year-old female states she has had intermittent flank pain throughout the day along with nausea and vomiting states she has had multiple episodes of vomiting states that throughout the evening her flank pain has become more consistent states pain is sharp in the right flank rates it an 8 out of 10 denies any worsening improving factors she is also cut herself on the wrist 2 hours ago. 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 Associated nausea: Yes Associated symtoms: Reports nausea; Denies chest pain or headache(s) Review of Systems Const: Denies: fever(s), chills, body aches or change in appetite Eyes: Denies: blurry vision or eye discomfort ENMT: Denies: throat pain or dental pain Card: Denies: chest pain Resp: Denies: dyspnea GI: Reports: nausea and vomiting : Reports: flank pain Musc: Denies: neck pain or back pain Skin/Breast: Denies: rash Neuro: Denies: headache(s) Psych: Denies: depression Catracho/Lymph: Denies: easy bruising All/Imm: Denies: urticaria PFSH ED PFSH: Medical History Anorexia nervosa Anxiety and depression History of methamphetamine use (~2013) No pertinent past medical history neghx: htn,dm,thyroid,dvt/pe,herpes ----denies partner with herpes PCP: Jazz Knapp Surgical History History of loop electrical excision procedure (LEEP) (~2013) Hx of section 2013 2016 Family History Family/Other Heart disease Maternal side in general Stroke Maternal side in general Thyroid disease Maternal side in general Grandfather Diabetes Maternal Mother Diabetes Hypercholesteremia Hypertension Denies family history of Colon cancer Ovarian cancer Breast cancer Uterine cancer Social History Smoking and tobacco status: current every day smoker cigarettes Packs smoked per day: 1 Years cigarettes smoked: 15 Alcohol intake: never Female Reproductive History: Para: 2 Spontaneous abortions: No Physical Exam Const: COMMON NORMALS: no acute distress, patient oriented x3 and healthy appearing HENMT: COMMON NORMALS: normocephalic and atraumatic HEAD & SCALP: normocephalic and atraumatic Eye: COMMON NORMALS: Equal, round and reactive pupils present and EOMs intact bilaterally PUPIL: Yes Equal, round and reactive pupils present Neck/C-Spine: COMMON NORMALS: full ROM and supple Chest: COMMONS NORMALS: normal inspection of the chest and normal palpation of entire chest wall Resp: COMMON NORMALS: normal respiratory effort, No retractions, No use of accessory muscles and clear to auscultation bilaterally AUSCULTATION: clear to auscultation bilaterally Cardio: COMMON NORMALS: regular rate, regular rhythm and No murmurs present (Cardio) RATE: regular rate RHYTHM: regular rhythm GI: COMMON NORMALS: Normal to inspection, nondistended, normoactive bowel sounds present, Soft to palpation, non-tender and no masses PALPATION: Yes Soft to palpation : COMMON NORMALS: Yes no CVA tenderness BLADDER/KIDNEY EXAM: Yes no CVA tenderness Back/Pelvis: COMMON NORMALS: no CVA tenderness Extremity: COMMON NORMALS: full ROM NARRATIVE EXTREMITY EXAM: Multiple superficial lacerations to bilateral arms Neuro: COMMON NORMALS: patient oriented x3, moves all extremities and no focal motor deficits Psych: COMMON NORMALS: mental status grossly normal, Normal thought process present and cooperative THOUGHT PROCESS: Normal thought process present Skin: COMMON NORMALS: no rashes or lesions noted and no wounds GENERAL SKIN EXAM: no rashes or lesions noted Course Vital Signs: Vital signs: Vital Signs Temperature 98.3 F 05/27/22 22:37 Pulse Rate 67 05/28/22 02:08 Respiratory Rate 16 05/28/22 02:08 Blood Pressure 125/70 05/28/22 02:08 Pulse Oximetry 99 05/28/22 02:08 Oxygen Delivery Me thod 05/27/22 22:37 MDM - Nausea/Vomiting/Diarrhea Medical Decision Making Patient presents here with vomiting along with flank pain blood work CT here are all normal she is well-appearing here abdominal exam is benign with no tenderness she is stable for discharge she is to follow-up with her PCP and return if worsening she understands agrees to plan. Lab Data 05/27/22 23:02 05/27/22 23:02 Radiology Impressions Abdomen/Pelvis CT 05/27/22 23:44 IMPRESSION: 1. There are no acute abdominal findings. 2. Normal appendix 3. No evidence for ureteral obstruction Laboratory Results WBC 12.4 10^3/uL (4.0-10.0) H 05/27/22 23: RBC 4.34 10^6/uL (4.1-5.3) 05/27/22 23: Hgb 14.1 g/dL (11.5-15.3) 05/27/22 23: Hct 42.8 % (37.0-47.0) 05/27/22 23: MCV 98.6 fl (81-99) 05/27/22 23: MCH 32.5 pg (28.0-34.0) 05/27/22: MCHC 32.9 g/dL (30.0-36.0) 05/27/22 23: RDW 13.0 % (12.1-15.1) 05/27/22 23: Plt Count 267 10^3/cmm (130-400) 05/27/22 23: MPV 9.2 fL (7.4-10.4) 05/27/22 23: Neut % (Auto) 78.8 % 05/27/22 23: Lymph % (Auto) 13.5 % 05/27/22 23: [place] % (Auto) 6.7 % 05/27/22 23: Eos % (Auto) 0.2 % 05/27/22 23: Baso % (Auto) 0.5 % 05/27/22 23:02 Neut # (Auto) 9.77 10^3/uL (1.8-7.7) H 05/27/22 23:02 Lymph # (Auto) 1.7 10^3/uL (0.8-4.8) 05/27/22 23:02 [place] # (Auto) 0.8 10^3/uL (0.2-0.9) 05/27/22 23: Eos # (Auto) 0.0 10^3/uL (0.0-0.8) 05/27/22 23:02 Baso # (Auto) 0.1 10^3/uL (0.0-0.1) 05/27/22 23:02 Nucleated RBC % (auto) 0 % 05/27/22 23:02 Nucleated RBCs # 0.0 /100WBC 05/27/22 23:02 Sodium 138 mmol/L (136-145) 05/27/22 23:02 Potassium 3.7 mmol/L (3.5-5.1) 05/27/22 23:02 Chloride 102 mmol/L (98-107) 05/27/22 23:02 Carbon Dioxide 25 mmol/L (22-29) 05/27/22 23:02 Anion Gap 14.7 (5-19) 05/27/22 23:02 BUN 13 mg/dL (6-20) 05/27/22 23:02 Creatinine 0.7 mg/dL (0.5-0.9) 05/27/22 23:02 GFR Calculation 97.6 mL/min (90-130) 05/27/22 23:02 Glucose 111 mg/dL (65-115) 05/27/22 23:02 Calculated Osmolality 287 mOsm/kg (285-295) 05/27/22 23:02 Calcium 9.4 mg/dL (8.5-10.5) 05/27/22 23:02 Total Bilirubin 0.3 mg/dL (0.15-1.2) 05/27/22 23:02 AST 13 U/L (0-32) 05/27/22 23:02 ALT 11 U/L (0-33) 05/27/22 23:02 Alkaline Phosphatase 45 U/L (35-105) 05/27/22 23:02 Total Protein 7.6 g/dL (6.6-8.7) 05/27/22 23:02 Albumin 4.4 g/dL (3.5-5.2) 05/27/22 23:02 Globulin 3.2 g/dL (1.3-4.6) 05/27/22 23:02 Lipase 15 U/L (13-60) 05/27/22 23:02 HCG, Qual Negative (Negative) 05/27/22 23:02 Urine Color Yellow (Yellow) 05/27/22 23:45 Urine Appearance Clear (CLEAR) 05/27/22 23:45 Urine pH 7 (5-7) 05/27/22 23:45 Ur Specific [place] 1.020 (1.005-1.030) 05/27/22 23:45 Urine Protein Trace (Negative) 05/27/22 23:45 Urine Glucose (UA) Norm (Normal) 05/27/22 23:45 Urine Ketones 1+ (Negative) H 05/27/22 23:45 Urine Blood Trace (Negative) H 05/27/22 23:45 Urine Nitrate Negative (Negative) 05/27/22 23:45 Urine Bilirubin Neg (Negative) 05/27/22 23:45 Urine Urobilinogen Norm mg/dL (Negative) 05/27/22 23:45 Ur Leukocyte Esterase Negative (Negative) 05/27/22 23:45 Urine RBC 0-4 /hpf (0-2) H 05/27/22 23:45 Urine WBC 0-4 /hpf (0-5) H 05/27/22 23:45 Ur Squamous Epith Cells 0-4 /hpf (0-5) H 05/27/22 23:45 Amorphous Sediment Not Reportable 05/27/22 23:45 Urine Bacteria Trace /hpf (NONE) 05/27/22 23:45 Urine Mucus 1+ /hpf 05/27/22 23:45 Discharge Plan Discharge Patient Disposition: Home Clinical Impression: Vomiting Condition: Stable Prescriptions: New Reglan 10 mg tablet 10 mg PO Q6H PRN (Reason: nausea and vomiting) Qty: 20 0RF No Action prenat.vits,harsh,tzt-dajw-gvioj Tablet 1 tab PO DAILY ProAir HFA 90 mcg/actuation HFA aerosol inhaler 1 inh INHALATION DIRECTED Vitamin D3 10 mcg (400 unit) Capsule 10 mcg PO DAILY Tylenol 325 mg Capsule 325 mg PO QID PRN (Reason: Pain) docusate sodium 100 mg Capsule 100 mg PO BID Qty: 60 0RF Discharge Orders: Discharge ED (Routine); Ordered 05/28/22 Ordered By: Guillermo Dejesus Referrals: Hailee Phelps FNP [Primary Care Provider] - Discharge Diet: Advance as tolerated Discharge Activity: Resume usual activity Patient Instructions: Acute Nausea and Vomiting (ED) Coding Level of Care Code ED Document Control Manager for Chg Sergo
[2022-05-27] MEDS: sodium chloride 0.9% 1,000 ML 999 ML IV (23:58)
[2022-05-28 00:43] LABS: Add Urine Microscopic? YES; Bilirubin Urine Neg (Negative); Blood Urine Trace (Negative); Glucose Urine UA Norm (Normal); Ketones Urine 1+ (Negative); Leukocyte Esterase Urine Negative (Negative); Nitrate Urine Negative (Negative); Protein Urine Trace (Negative); Urine Appearance Clear (CLEAR); Urine Color Yellow (Yellow); Urobilinogen Urine Norm (Negative); pH Urine 7 (5-7)
[2022-05-28 00:52] LABS: Bacteria Urine TRACE /hpf; Mucus Urine 1+ /hpf; RBC Urine 0-4 /hpf (0-2); Squamous Epithelial Cell Urine 0-4 /hpf (0-5); WBC Urine 0-4 /hpf (0-5)
[2022-05-28] MEDS: metoclopramide 5 mg/mL SDV 2 mL 10 MG IM (01:55)
[2022-05-28] MEDS: diphenhydrAMINE 50 mg/mL SDV 1mL IM (01:55)
[2022-05-28 02:08] VITALS: BP 125/70; PULSE 67; RESP 16; O2SAT 99
== END 2022-05-28 02:10 | disposition home or self-care (01) ==
PROVIDERS: Emergency Provider Emergency Medicine; PCP Nurse Practitioner Family
DX: R11.11 Vomiting without nausea (principal); F17.210 Nicotine dependence, cigarettes, uncomplicated
CPT/HCPCS: 36415; 74176; 80053; 81001; 83690; 84703; 85025; 96372; 99284; J1200; J2765; J7030

== ENCOUNTER 2023-02-12 11:48 | Emergency (ER) | payer BC, MEDICAID, SELFPAY ==
[2023-02-12 13:06] VITALS: BP 124/83; PULSE 87; RESP 18; TEMP 36.7; O2SAT 97
--- NOTE | 2023-02-12 13:26 | W.ED.DENTAL ---
HPI - Dental/Oral General: Chief complaint: Dental/Oral Stated complaint: left mouth pain Time Seen by Provider: 02/12/23 13:15 History of Present Illness: 32-year-old female comes in today for complaints of upper left cuspid dental pain and abscess. Patient noticed a swollen area this morning that opened up and started draining on the way to work. Patient has poor dentition. Patient appears nontoxic. Patient appears in mild to no pain. Review of Systems General: Reports: 10 or more systems reviewed and unremarkable except in HPI and below ENMT: Reports: dental pain PFSH ED PFSH: Medical History Anorexia nervosa Anxiety and depression History of methamphetamine use (~2013) No pertinent past medical history neghx: htn,dm,thyroid,dvt/pe,herpes ----denies partner with herpes PCP: Jazz Knapp Surgical History History of loop electrical excision procedure (LEEP) (~2013) Hx of section 2013 2016 Family History Family/Other Heart disease Maternal side in general Stroke Maternal side in general Thyroid disease Maternal side in general Grandfather Diabetes Maternal Mother Diabetes Hypercholesteremia Hypertension Denies family history of Colon cancer Ovarian cancer Breast cancer Uterine cancer Social History Smoking and tobacco/nicotine status: current every day tobacco/nicotine user cigarettes Packs smoked per day: 1 Years cigarettes smoked: 15 Alcohol intake: never Substance/Drug Use: current Substance/Drug use frequency: few times a week Do you think of yourself as: Straight/Heterosexual Female Reproductive History: Para: 2 Spontaneous abortions: No Physical Exam Const: COMMON NORMALS: alert HENMT: COMMON NORMALS: normocephalic HEAD & SCALP: normocephalic TEETH & GINGIVA: Yes abnormal tooth and associated gingiva (Decayed teeth, abscess gingiva upper left cuspid), Yes caries and Yes poor dentition Neck/C-Spine: COMMON NORMALS: full ROM Resp: COMMON NORMALS: normal respiratory effort and clear to auscultation bilaterally AUSCULTATION: clear to auscultation bilaterally Cardio: COMMON NORMALS: regular rate and regular rhythm RATE: regular rate RHYTHM: regular rhythm GI: COMMON NORMALS: Soft to palpation and non-tender PALPATION: Yes Soft to palpation Back/Pelvis: COMMON NORMALS: thoracic and lumbar spine normal to inspection Extremity: COMMON NORMALS: normal to inspection and full ROM Neuro: SENSORIUM/ORIENTATION: Yes alert Skin: COMMON NORMALS: turgor normal GENERAL SKIN EXAM: turgor normal Course Vital Signs: Vital signs: Vital Signs Temperature 98.1 F 02/12/23 13:06 Pulse Rate 87 02/12/23 13:06 Respiratory Rate 18 02/12/23 13:06 Blood Pressure 124/83 02/12/23 13:06 Pulse Oximetry 97 02/12/23 13:06 Oxygen Delivery Me thod Room Air 02/12/23 13:06 [facility] - Dental/Oral Medical Decision Making 32-year-old female comes in today for complaints of dental pain and draining abscess. On exam patient has a dental abscess noted to the gingiva of the left upper cuspid. Posterior pharynx is normal. Patient has multiple decayed teeth in very poor dentition. Differential diagnosis includes but not limited to dental abscess, dental caries, odontalgia. No signs of severe illness or injury is noted. Patient be started on Augmentin for dental abscess and recommended to follow-up with dentist. Patient was stable and discharged home. No radiology studies performed this visit Discharge Plan Discharge Patient Disposition: Home Clinical Impression: Abscess, dental Condition: Stable Prescriptions: New amoxicillin-pot clavulanate 875-125 mg tablet 1 tab PO Q8H Qty: 15 0RF ketorolac 10 mg tablet 10 mg PO Q6H PRN (Reason: pain) Qty: 12 0RF No Action prenat.vits,harsh,dry-eokt-vvovq Tablet 1 tab PO DAILY ProAir HFA 90 mcg/actuation HFA aerosol inhaler 1 inh INHALATION DIRECTED Vitamin D3 10 mcg (400 unit) Capsule 10 mcg PO DAILY Tylenol 325 mg Capsule 325 mg PO QID PRN (Reason: Pain) docusate sodium 100 mg Capsule 100 mg PO BID Qty: 60 0RF Reglan 10 mg tablet 10 mg PO Q6H PRN (Reason: nausea and vomiting) Qty: 20 0RF Discharge Orders: Discharge ED (Routine); Ordered 02/12/23 Ordered By: All Carbajal Discharge Diet: Usual diet Discharge Activity: Increase activity as tolerated Patient Instructions: Toothache (ED) Activity Restrictions/Additional Instructions: Drink plenty of water and fluids. Take medications as directed. Use ice or heat to help with pain. Use acetaminophen for pain or ketorolac for severe pain. Follow-up with primary care as needed. Follow-up with dentist for definitive care. Return to ED for new concerns. Coding Level of Care Code ED Registered Nurse Hh Case Manager for Maciel Trotter
[2023-02-12] MEDS: ketorolac 10 mg Tablet PO (13:41)
[2023-02-12] MEDS: amoxicillin-clav 875-125 mg Tablet 1 TAB PO (13:41)
== END 2023-02-12 14:46 | disposition home or self-care (01) ==
PROVIDERS: Emergency Provider Nurse Practitioner Family
DX: K04.7 Periapical abscess without sinus (principal); F17.210 Nicotine dependence, cigarettes, uncomplicated
CPT/HCPCS: 99283

== ENCOUNTER → 2023-09-01 08:08 | Outpatient (BNVA) | payer MEDICAID, SELFPAY | PROVIDERS: Visit Provider Nurse Practitioner Women's Health | DX: Z34.90 Encounter for supervision of normal pregnancy, unspecified, unspecified trimester | CPT/HCPCS: 81025; 84702; 86850; 86900 ==

== ENCOUNTER 2023-09-21 16:10 | Emergency (ER) | payer MEDICAID, SELFPAY ==
--- NOTE | 2023-09-21 16:11 | PC.NURSE ---
EKG done in triage
[2023-09-21 16:15] VITALS: BP 112/80; PULSE 105; RESP 15; TEMP 37.3; O2SAT 98
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
--- NOTE | 2023-09-21 17:50 | XRR_ITS ---
PROCEDURE INFORMATION: Exam: XR Chest Exam date and time: 09/21/2023 7:08 PM Age: 33 years old Clinical indication: Pain; Chest pressure; Additional info: Dyspnea/cough TECHNIQUE: Imaging protocol: Radiologic exam of the chest. Views: 1 view. COMPARISON: CT Chest/Abdomen/Pelvis w IV* 01/13/2019 4:03 PM FINDINGS: Lungs: No focal consolidation. Mild paraseptal emphysematous changes. Pleural spaces: No evidence of pneumothorax. No evidence of pleural effusion. Heart/Mediastinum: Cardiomediastinal silhouette is within normal limits. Bones/joints: No evidence of acute osseous abnormality. XR/XR chest 1V portable [id number] IMPRESSION: 1. No acute cardiopulmonary abnormality. 2. Mild biapical emphysematous changes.
--- NOTE | 2023-09-21 17:58 | ECG_ITS ---
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 Measurements Intervals [place] Rate: 97 P: 84 AR: 129 QRS: 80 QRSD: 86 T: 63 QT: 327 QTc: 417 Interpretive Statements SINUS RHYTHM WITH SINUS ARRHYTHMIA RIGHT ATRIAL ENLARGEMENT [0.3mV P-WAVE] POSSIBLE LEFT ATRIAL ENLARGEMENT [-0.1mV P-WAVE IN V1/V2] POSSIBLE RIGHT VENTRICULAR CONDUCTION DELAY [RSR (QR) IN V1/V2] Compared to ECG 04/16/2021 16:35:21 No significant changes Electronically Signed On 09-21-2023 22:44:27 CDT by Darinel Young M.D. [id number] f
[2023-09-21 18:17] VITALS: BP 107/64; PULSE 80; O2SAT 100
[2023-09-21 18:25] LABS: Basophils % 0.5 %; Eosinophils % 0.4 %; Lymphocytes # 1.4 10^3/uL (0.8-4.8); Lymphocytes % 17.7 %; Mean Corpuscular HGB Conc 33.6 g/dL (30-55); Mean Corpuscular Hemoglobin 32.8 pg (27-33); Mean Corpuscular Volume 97.5 fl (85-98); Mean Platelet Volume 9.6 fL (7.4-10.4); Monocytes # 0.4 10^3/uL (0.2-0.9); Monocytes % 5.6 %; Neutrophils # 5.97 10^3/uL (1.8-7.7); Neutrophils % 75.3 %; Nucleated Red Blood Cells % 0 %; Platelet Count 237 10^3/cmm (157-399); White Blood Count 7.92 10^3/uL (3.29-11.43)
[2023-09-21 18:31] LABS: Alanine Aminotransferase 7 U/L (0-33); Albumin Level 4.1 g/dL (3.5-5.2); Alkaline Phosphatase 48 U/L (35-105); Anion Gap 12.7 (5-19); Aspartate Amino Transferase 10 U/L (0-32); Blood Urea Nitrogen 8 mg/dL (6-20); Calcium 9.3 mg/dL (8.5-10.5); Carbon Dioxide 23 mmol/L (22-29); Chloride 105 mmol/L (98-107); Creatinine Clr Calc Pharmacy 187.2095; Globulin 2.8 g/dL (1.3-4.6); Glucose 85 mg/dL (65-115); Osmolality Calculated 282 mOsm/kg (285-295); Potassium 3.7 mmol/L (3.5-5.1); Sodium 137 mmol/L (136-145); Total Bilirubin 0.2 mg/dL (0.15-1.2); Total Protein 6.9 g/dL (6.6-8.7)
--- NOTE | 2023-09-21 18:41 | ECG_ITS ---
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 Measurements Intervals [place] Rate: 104 P: 84 IA: 136 QRS: 77 QRSD: 88 T: 75 QT: 327 QTc: 431 Interpretive Statements SINUS TACHYCARDIA POSSIBLE RIGHT ATRIAL ENLARGEMENT [0.25mV P-WAVE] LEFT ATRIAL ENLARGEMENT [-0.15mV P-WAVE IN V1/V2] POSSIBLE RIGHT VENTRICULAR CONDUCTION DELAY [RSR (QR) IN V1/V2] MODERATE ST DEPRESSION [0.05+ mV ST DEPRESSION] Compared to ECG 09/21/2023 16:11:09 ST (T wave) deviation now present Sinus rhythm no longer present Sinus arrhythmia no longer present Electronically Signed On 09-22-2023 23:27:42 CDT by Carin Daley M.D. [id number] f
[2023-09-21] MEDS: sodium chloride 0.9% 1,000 ML 999 ML IV (18:55)
[2023-09-21 19:01] VITALS: BP 106/69; PULSE 87; RESP 18; O2SAT 100
--- NOTE | 2023-09-21 19:02 | PC.NURSE ---
During shift report the pts HR elevated to 160's. By the time we had a ekg ready to read the pts HR had went back to baseline. The pt was breathing about 40 times a minute and was coached to slow her breathing. ED physician informed
[2023-09-21 19:13] LABS: Add Urine Microscopic? YES; Bilirubin Urine Neg (Negative); Blood Urine Neg (Negative); Glucose Urine UA Norm (Normal); Ketones Urine Negative (Negative); Leukocyte Esterase Urine Negative (Negative); Nitrate Urine Negative (Negative); Protein Urine Neg (Negative); Specific Gravity, Urine 1.015 (1.005-1.030); Urine Appearance Slightly Cloudy (CLEAR); Urine Color Yellow (Yellow); Urobilinogen Urine Norm (Negative); pH Urine 7 (5-7)
[2023-09-21 19:27] LABS: Add Urine Culture? No; Amorphous Sediment Urine TRACE /hpf; Bacteria Urine 1+ /hpf; Mucus Urine 2+ /hpf; WBC Urine 0-4 /hpf (0-5)
[2023-09-21] MEDS: cefTRIAXone 1,000 mg SDV 1000 MG IVP (19:41)
[2023-09-21 20:02] VITALS: BP 114/66; PULSE 78; RESP 19; O2SAT 99
--- NOTE | 2023-09-21 21:22 | ECG_ITS ---
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 Measurements Intervals [place] Rate: 73 P: 40 GA: 135 QRS: 62 QRSD: 86 T: 52 QT: 366 QTc: 406 Interpretive Statements SINUS RHYTHM WITH OCCASIONAL ECTOPIC PREMATURE COMPLEXES Compared to ECG 09/21/2023 18:41:34 Sinus tachycardia no longer present Atrial abnormality no longer present ST (T wave) deviation no longer present Electronically Signed On 09-22-2023 23:27:47 CDT by Carin Daley M.D. [id number] f
== END 2023-09-21 20:11 | disposition home or self-care (01) ==
PROVIDERS: Family Medicine; Emergency Provider Emergency Medicine
DX: O23.41 Unspecified infection of urinary tract in pregnancy, first trimester (principal); N39.0 Urinary tract infection, site not specified; O26.891 Other specified pregnancy related conditions, first trimester; E86.0 Dehydration; Z3A.09 9 weeks gestation of pregnancy
CPT/HCPCS: 36415; 71045; 80053; 81001; 85025; 93005; 96374; 99285; J0696; J7030

== ENCOUNTER 2023-10-06 16:06 | Emergency (ER) | payer MEDICAID, SELFPAY ==
[2023-10-06 16:12] VITALS: BP 115/72; PULSE 117; RESP 16; TEMP 36.8; O2SAT 99
--- NOTE | 2023-10-06 16:23 | USR_ITS ---
PROCEDURE INFORMATION: Exam: US First Trimester, Transabdominal and US , Transvaginal Exam date and time: 10/06/2023 4:39 PM Age: 33 years old Clinical indication: Lmp or gestational age (in weeks): 07/15/2023; Other: Absent fht; ; Prior surgery; Surgery date: 6+ months; Surgery type: 3 c-sections; Additional info: Threatened miscarriage LABS AND CLINICAL REPORTS: Last menstrual period start date: 07/15/2023 Gestational age (Established): 11 w 6 d Estimated due date (Established): 04/20/2024 TECHNIQUE: Imaging protocol: Real-time transabdominal obstetrical ultrasound of the maternal pelvis and a first trimester , less than 14 weeks 0 days, with image documentation. Transvaginal imaging was used for better evaluation of the fetus, adnexa, and/or cervix. COMPARISON: US OB >= 14 weeks fetus [id number] 08/28/2020 1:54 PM FINDINGS: GESTATION: Gestation: There is an intrauterine gestational sac that contains a pole. The pole demonstrates no evidence of cardiac activity. Measurements give a gestational age of 8 weeks 5 days. I see no subchorionic hemorrhage. Embryonic/ heart rate: See Gestation finding. Extra-embryonic membranes/Placenta: See Gestation finding. Amniotic/Chorionic fluid: Amniotic and extra-amniotic fluid are normal for gestational age. BIOMETRY: Gestational age (AUA): See Gestation finding. MATERNAL: Uterus: Unremarkable. Cervix: Unremarkable. Endocervical canal is closed. Right ovary/adnexa: Obscured by lack of adequate acoustic window. Left ovary/adnexa: Obscured by lack of adequate acoustic window. Intraperitoneal space: No intraperitoneal free fluid. US/US OB <= 14 weeks fetus [id number] IMPRESSION: Embryonic demise
--- NOTE | 2023-10-06 16:24 | ED_ITS ---
HPI - 2 General: Chief complaint: Vaginal Bleeding Stated complaint: dr summers, 12 wks couldn't find heartbeat Time Seen by Provider: 10/06/23 16:11 Source: patient Mode of arrival: ambulatory Limitations: no limitations History of Present Illness: 33-year-old female who is currently 12 weeks she states that she had some slight bleeding the last 2 days she saw her OB clinic today and they could not find a heartbeat so sent her here for formal ultrasound she had some mild cramping denies any large amounts of bleeding. Associated symptoms: Deny abdominal pain, headache(s), nausea or vomiting Review of Systems 2 Const: Denies: fever(s), chills, body aches or change in appetite ENMT: Denies: throat pain or dental pain Card: Denies: chest pain Resp: Denies: dyspnea GI: Denies: abdominal pain, nausea, vomiting or diarrhea : Reports: vaginal bleeding Musc: Denies: neck pain or back pain Skin/Breast: Denies: rash Neuro: Denies: headache(s) PFSH ED 2 PFSH: Medical History No pertinent past medical history neghx: htn,dm,thyroid,dvt/pe,herpes ----denies partner with herpes PCP: Jazz Knapp History of methamphetamine use (~2013) Anorexia nervosa Anxiety and depression Surgical History Hx of section 2013 2016 History of loop electrical excision procedure (LEEP) (~2013) Family History Family/Other Heart disease Maternal side in general Stroke Maternal side in general Thyroid disease Maternal side in general Grandfather Diabetes Maternal Mother Diabetes Hypercholesteremia Hypertension Denies family history of Colon cancer Ovarian cancer Breast cancer Uterine cancer Female Reproductive History: Para: 2 Spontaneous abortions: No Physical Exam 2 Const: COMMON NORMALS: no acute distress, patient oriented x3 and healthy appearing HENMT: COMMON NORMALS: normocephalic and atraumatic HEAD & SCALP: n ormocephalic and atraumatic Neck/C-Spine: COMMON NORMALS: full ROM and supple Chest: COMMONS NORMALS: normal inspection of the chest Resp: COMMON NORMALS: normal respiratory effort Cardio: COMMON NORMALS: regular rate RATE: regular rate GI: COMMON NORMALS: Normal to inspection, nondistended, normoactive bowel sounds present, Soft to palpation, non-tender and no masses PALPATION: Yes Soft to palpation Extremity: COMMON NORMALS: normal to inspection and full ROM Neuro: COMMON NORMALS: patient oriented x3, moves all extremities and no focal motor deficits Psych: COMMON NORMALS: mental status grossly normal, Normal thought process present and cooperative THOUGHT PROCESS: Normal thought process present Skin: COMMON NORMALS: no rashes or lesions noted and no wounds GENERAL SKIN EXAM: no rashes or lesions noted Course 2 Vital Signs: Vital signs: Vital Signs Temperature 98.3 F 10/06/23 16:12 Pulse Rate 89 10/06/23 16:31 Respiratory Rate 16 10/06/23 16:12 Blood Pressure 119/71 10/06/23 16:31 Pulse Oximetry 100 10/06/23 16:31 Oxygen Delivery Me thod Room Air 10/06/23 16:31 MDM - OB/Uterine Contractions Medical Decision Making Patient presents here with threatened miscarriage ultrasound showed no heart tones likely a demise. She is no heavy bleeding here hemoglobin is normal she has an appoint with her OB on Tuesday follow-up as scheduled return if worsening. Medical Records I reviewed the patient's medical records. Lab Data I reviewed the patient's lab results. 10/06/23 16:32 Laboratory Results WBC 8.15 10^3/uL (3.29-11.43) 10/06/23 16:32 RBC 4.25 10^6/uL (3.85-5.65) 10/06/23 16:32 Hgb 14.00 g/dL (11.27-16.99) 10/06/23 16:32 Hct 40.7 % (36-47) 10/06/23 16:32 MCV 95.8 fl (85-98) 10/06/23 16:32 MCH 32.9 pg (27-33) 10/06/23 16:32 MCHC 34.4 g/dL (30-55) 10/06/23 16:32 RDW 12.2 % (12.1-15.1) 10/06/23 16:32 Plt Count 233 10^3/cmm (157-399) 10/06/23 16:32 MPV 9.2 fL (7.4-10.4) 10/06/23 16:32 Neut % (Auto) 71.2 % 10/06/23 16:32 Lymph % (Auto) 18.8 % 10/06/23 16:32 [place] % (Auto) 7.9 % 10/06/23 16:32 Eos % (Auto) 1.3 % 10/06/23 16:32 Baso % (Auto) 0.6 % 10/06/23 16:32 Neut # (Auto) 5.80 10^3/uL (1.8-7.7) 10/06/23 16:32 Lymph # (Auto) 1.5 10^3/uL (0.8-4.8) 10/06/23 16:32 [place] # (Auto) 0.6 10^3/uL (0.2-0.9) 10/06/23 16:32 Eos # (Auto) 0.1 10^3/uL (0.0-0.8) 10/06/23 16:32 Baso # (Auto) 0.1 10^3/uL (0.0-0.1) 10/06/23 16:32 Nucleated RBC % (auto) 0 % 10/06/23 16:32 Nucleated RBCs # 0.0 /100WBC 10/06/23 16:32 All radiology interpretation(s) finalized by discharge Discharge Plan Discharge Patient Disposition: Home Clinical Impression: Threatened Condition: Stable Prescriptions: No Action PNV #[id number] acid-dha 35 mg iron-5 mg iron-1 mg capsule 1 cap PO DAILY 90 Days Qty: 90 1RF ProAir HFA 90 mcg/actuation HFA aerosol inhaler 1 inh INHALATION DIRECTED Tylenol 325 mg Capsule 325 mg PO QID PRN (Reason: Pain) Discharge Orders: Discharge ED (Routine); Ordered 10/06/23 Ordered By: Guillermo Dejesus Discharge Diet: Advance as tolerated Discharge Activity: Resume usual activity Patient Instructions: Threatened Miscarriage (ED) Coding Level of Care Code ED [employer] for Maciel Trotter
[2023-10-06 16:31] VITALS: BP 119/71; PULSE 89; O2SAT 100
[2023-10-06 16:42] LABS: Basophils # 0.1 10^3/uL (0.0-0.1); Basophils % 0.6 %; Eosinophils # 0.1 10^3/uL (0.0-0.8); Eosinophils % 1.3 %; Hematocrit 40.7 % (36-47); Lymphocytes # 1.5 10^3/uL (0.8-4.8); Lymphocytes % 18.8 %; Mean Corpuscular HGB Conc 34.4 g/dL (30-55); Mean Corpuscular Hemoglobin 32.9 pg (27-33); Mean Corpuscular Volume 95.8 fl (85-98); Mean Platelet Volume 9.2 fL (7.4-10.4); Monocytes # 0.6 10^3/uL (0.2-0.9); Monocytes % 7.9 %; Neutrophils % 71.2 %; Nucleated Red Blood Cells % 0 %; Platelet Count 233 10^3/cmm (157-399); Red Blood Count 4.25 10^6/uL (3.85-5.65); Red Cell Distribution Width 12.2 % (12.1-15.1); White Blood Count 8.15 10^3/uL (3.29-11.43)
[2023-10-06 17:01] VITALS: BP 119/71; PULSE 89; RESP 16; TEMP 36.8; O2SAT 100
== END 2023-10-06 17:07 | disposition home or self-care (01) ==
PROVIDERS: Emergency Provider Emergency Medicine
DX: O20.0 Threatened abortion (principal); Z3A.12 12 weeks gestation of pregnancy
CPT/HCPCS: 36415; 76801; 84702; 85025; 86850; 86900; 99284

== ENCOUNTER → 2023-10-11 10:45 | Outpatient (BNVA) | payer MEDICAID, SELFPAY | PROVIDERS: Visit Provider Nurse Practitioner Women's Health | DX: O20.0 Threatened abortion (principal) | CPT/HCPCS: 84702 ==